=== PATIENT | female | born 1990 | race American Indian/Alaskan Native ===

== ENCOUNTER 2022-05-05 17:26 | Emergency (ER) | payer MEDICAID ==
--- NOTE | 2022-05-05 18:17 | XRay Report ---
XR chest routine 2V INDICATION / CLINICAL INFORMATION: SOB. COMPARISON: None available. FINDINGS: SUPPORT DEVICES: None. HEART /PULMONARY VASCULATURE: No significant abnormality. LUNGS / PLEURA: No significant pulmonary or pleural abnormality. No pneumothorax. ADDITIONAL FINDINGS: No significant additional findings. IMPRESSION: 1. No acute findings. Signer Name: Arvind Skelton MD Signed: 05/05/2022 6:12 PM Workstation Name: [id number]
[2022-05-05 18:44] LABS: Basophils # (Auto) 0.1 K/mm3 (0.0-0.1); Basophils % (Auto) 0.7 % (0.0-1.8); Eosinophils # (Auto) 0.5 K/mm3 (0.0-0.4); Eosinophils % (Auto) 6.5 % (0.0-4.3); Hematocrit 39.3 % (30.3-42.9); Hemoglobin 12.9 gm/dl (10.1-14.3); Lymphocytes # (Auto) 2.6 K/mm3 (1.2-5.4); Lymphocytes % (Auto) 34.2 % (13.4-35.0); Mean Corpuscular HGB Conc 33 % (30-34); Mean Corpuscular Volume 91 fl (79-97); Monocytes # (Auto) 0.5 K/mm3 (0.0-0.8); Monocytes % (Auto) 6.4 % (0.0-7.3); Platelet Count 253 K/mm3 (140-440); Red Cell Distribution Width 12.7 % (13.2-15.2)
[2022-05-05 19:18] LABS: Alanine Aminotransferase 59 units/L (7-56); Albumin 4.6 g/dL (3.9-5); BUN/Creatinine Ratio 13; Blood Urea Nitrogen 12 mg/dL (7-17); Calcium 9.3 mg/dL (8.4-10.2); Hemolysis Index 13
[2022-05-05] MEDS ORDERED: IPRATROPIUM/ALBUTEROL SULFATE 3 ML AMPUL.NEB IH ONE (20:54)
[2022-05-05] MEDS ORDERED: methylPREDNISolone Sod Succinate 125 MG/2 ML INJ IM ONE (20:54)
--- NOTE | 2022-05-05 22:07 | Emergency Department Report ---
- General Chief Complaint: Dyspnea/Respdistress Stated Complaint: SANDRA/COUGH Source: patient Mode of arrival: Ambulatory Limitations: No Limitations - History of Present Illness Initial Comments: Patient is a 31-year-old -[place] female with no past medical history presents to the ED with complaint of acute onset persistent nasal and sinus congestion, frontal sinus pressure, persistent dry cough with wheezing and chest tightness and shortness of breath for the last 2 days. Patient states that the symptoms got worse in the last 8 hours. Patient denies dizziness, syncope, fever, chills, nausea and vomiting, body aches and pains, abdominal pain, diarrhea, dysuria, urinary frequency and urgency, sore throat, change in vision or neck pain. MD Complaint: fever, cough, rhinorrhea, nasal congestion, sinus pain, other (Shortness of breath) -: days(s) (2) Severity: moderate Severity scale (0 -10): 6 Quality: dull, aching, other (Chest tightness) Consistency: constant Improves With: nothing Worsens With: nothing Associated Symptoms: denies other symptoms, rhinorrhea, nasal congestion, cough, shortness of breath. denies: fever, chills, myalgias, sore throat, stiff neck, chest pain, abdominal pain, nausea, vomiting, diarrhea, dysuria, rash, confusion, weight loss, epistaxis, hoarseness, ear pain, other Treatments Prior to Arrival: none - Related Data Previous Rx's Medication Instructions Recorded Last Taken Type Albuterol Sulfate [Proventil Hfa] 1 - 2 puff IH Q4H PRN #1 inh 05/05/22 Unknown Rx Azithromycin [Zithromax Z-JACE] 250 mg PO DAILY #6 tab 05/05/22 Unknown Rx Benzonatate [Tessalon Perles] 100 mg PO Q8HR #30 cap 05/05/22 Unknown Rx Cetirizine HCl [Zyrtec 10mg tab] 10 mg PO DAILY #30 tab 05/05/22 Unknown Rx Ibuprofen [Motrin] 600 mg PO Q8H PRN #30 tablet 05/05/22 Unknown Rx Allergies Allergy/AdvReac Type Severity Reaction Status Date / Time No Known Allergies Allergy Unverified 05/05/22 17:45 ED Review of Systems ROS: Stated complaint: SANDRA/COUGH Other details as noted in HPI Constitutional: denies: chills, fever Eyes: denies: eye pain, eye discharge, vision change ENT: congestion. denies: ear pain, throat pain Respiratory: cough, shortness of breath, wheezing Cardiovascular: denies: chest pain, palpitations Endocrine: no symptoms reported Gastrointestinal: denies: abdominal pain, nausea, vomiting, diarrhea Genitourinary: denies: urgency, dysuria, discharge Musculoskeletal: denies: back pain, joint swelling, arthralgia Skin: denies: rash, lesions Neurological: headache. denies: weakness, paresthesias Psychiatric: denies: anxiety, depression Hematological/Lymphatic: denies: easy bleeding, easy bruising ED Past Medical Hx - Medications Home Medications: Home Medications Medication Instructions Recorded Confirmed Last Taken Type Albuterol Sulfate [Proventil Hfa] 1 - 2 puff IH Q4H PRN #1 inh 05/05/22 Unknown Rx Azithromycin [Zithromax Z-JACE] 250 mg PO DAILY #6 tab 05/05/22 Unknown Rx Benzonatate [Tessalon Perles] 100 mg PO Q8HR #30 cap 05/05/22 Unknown Rx Cetirizine HCl [Zyrtec 10mg tab] 10 mg PO DAILY #30 tab 05/05/22 Unknown Rx Ibuprofen [Motrin] 600 mg PO Q8H PRN #30 tablet 05/05/22 Unknown Rx ED Physical Exam - General Limitations: No Limitations General appearance: alert, in no apparent distress - Head Head exam: Present: atraumatic, normocephalic, normal inspection - Eye Eye exam: Present: normal appearance, PERRL, EOMI Pupils: Present: normal accommodation - ENT ENT exam: Present: normal orophraynx, mucous membranes moist, TM's normal bilaterally, normal external ear exam, other (Grossly congested nasal passages; palpable frontal sinus tenderness) - Neck Neck exam: Present: normal inspection, full ROM. Absent: tenderness - Respiratory Respiratory exam: Present: wheezes (Mild diffuse coarse wheezes throughout). A bsent: normal lung sounds bilaterally, respiratory distress, rales, rhonchi, stridor, chest wall tenderness, accessory muscle use, decreased breath sounds, prolonged expiratory - Cardiovascular Cardiovascular Exam: Present: regular rate, normal rhythm, normal heart sounds. Absent: systolic murmur, diastolic murmur, rubs, gallop - GI/Abdominal GI/Abdominal exam: Present: soft, normal bowel sounds. Absent: tenderness, guarding, rebound, hyperactive bowel sounds, hypoactive bowel sounds, organomegaly, mass, bruit - Extremities Exam Extremities exam: Present: normal inspection, full ROM, normal capillary refill. Absent: tenderness, pedal edema, joint swelling, calf tenderness - Back Exam Back exam: Present: normal inspection, full ROM. Absent: tenderness, CVA tenderness (R), CVA tenderness (L), muscle spasm, paraspinal tenderness, v ertebral tenderness - Neurological Exam Neurological exam: Present: alert, oriented X3, CN II-XII intact, normal gait, reflexes normal - Psychiatric Psychiatric exam: Present: normal affect, normal mood - Skin Skin exam: Present: warm, dry, intact, normal color. Absent: rash ED Course Vital Signs 05/05/22 17:44 Temperature 98.0 F Pulse Rate 96 H Respiratory 18 Rate Blood Pressure 112/64 [Left] O2 Sat by Pulse 99 Oximetry ED Medical Decision Making - Lab Data Result diagrams: 05/05/22 18:30 05/05/22 18:30 - Radiology Data Radiology results: report reviewed, image reviewed [facility] [address] [place] [address] XRay Report Signed Patient: STEVE HOU MR#: [id number] : 1990 Acct:[id number] Age/Sex: 31 / F ADM Date: 05/05/22 Loc: ED Attending Dr: Ordering Physician: SHELODN SINGH MD Date of Service: 05/05/22 Procedure(s): XR chest routine 2V Accession Number(s): [id number] cc: ED MD FRANCISCO Fluoro Time In Minutes: XR chest routine 2V INDICATION / CLINICAL INFORMATION: SOB. COMPARISON: None available. FINDINGS: SUPPORT DEVICES: None. HEART /PULMONARY VASCULATURE: No significant abnormality. LUNGS / PLEURA: No significant pulmonary or pleural abnormality. No pneumothorax. ADDITIONAL FINDINGS: No significant additional findings. IMPRESSION: 1. No acute findings. Signer Name: Charla Zacarias MD Signed: 05/05/2022 6:12 PM Workstation Name: [id number] Transcribed By: JS Dictated By: CHARLA ZACARIAS MD Electronically Authenticated By: CHARLA ZACARIAS MD Signed Date/Time: 05/05/221811 DD/ 11 TD/TT: Print Cancel - Medical Decision Making This is a 31-year-old -[place] female with no past medical history presents to the ED with complaint of acute onset persistent nasal and sinus congestion, frontal sinus pressure, persistent dry cough with wheezing and chest tightness and shortness of breath for the last 2 days. Patient states that the symptoms got worse in the last 8 hours. In the ED, patient is alert and oriented x3 and is not in any distress. Patient was treated in the ED with DuoNeb and Solu-Medrol 125 mg intramuscular injection. Chest x-ray showed no ac mikie cardiopulmonary abnormalities or pneumonitis. On reevaluation, patient felt better, oxygen saturation ranged between 99 to 100% on room air. Patient was discharged home on medications and advised to follow-up with her primary care physician in 7 to 10 days for reevaluation or return to the ED immediately if symptoms get worse. Patient was also advised to get tested for COVID-19 viral infection at any of the outpatient facilities and if positive to self quarantine at home for 5 days. - Differential Diagnosis URI; sinusitis; bronchitis; asthma; pneumonia; COVID-19 Critical care attestation.: If time is entered above; I have spent that time in minutes in the direct care of this critically ill patient, excluding procedure time. ED Disposition Clinical Impression: Acute upper respiratory infection Acute bronchitis Qualifiers: Bronchitis organism: other organism Qualified Code(s): J20.8 - Acute bronchitis due to other specified organisms Acute frontal sinusitis Qualifiers: Recurrence: non-recurrent Qualified Code(s): J01.10 - Acute frontal sinusitis, unspecified Disposition: 01 HOME / SELF CARE / HOMELESS Is pt being admited?: No Does the pt Need Aspirin: No Condition: Stable Instructions: Acute Bronchitis (ED), Sinusitis, Adult, [id number], Upper Respiratory Infection, Adult, [id number], Cough, Adult, [id number], Acute Bronchitis, Adult, [id number] Additional Instructions: Chest x-ray showed no acute cardiopulmonary abnormalities or pneumonitis. All lab test results were reviewed and are all nonactionable. Therefore take medication as advised, drink plenty of fluids, follow-up with your primary care physician in 7 to 10 days for reevaluation. Ensure that you get tested for COVID-19 viral infection and a positive self quarantine at home for 5 days. Otherwise return to the ED immediately if symptoms get worse. Prescriptions: Ibuprofen [Motrin] 600 mg PO Q8H PRN #30 tablet PRN Reason: Pain Albuterol Sulfate [Proventil Hfa] 1 - 2 puff IH Q4H PRN #1 inh PRN Reason: Shortness Of Breath Benzonatate [Tessalon Perles] 100 mg PO Q8HR #30 cap Azithromycin [Zithromax Z-JACE] 250 mg PO DAILY #6 tab Cetirizine HCl [Zyrtec 10mg tab] 10 mg PO DAILY #30 tab Referrals: [facility] [Provider Group] - 7-10 days Forms: Work/School Release Form(ED) Time of Disposition: 22:08 Print Language: THAI
[2022-05-05 23:21] VITALS: BP 117/69
== END 2022-05-05 23:21 | disposition home or self-care (01) ==
LOC: ED 17:26
DX: J06.9 Acute upper respiratory infection, unspecified (principal); J20.8 Acute bronchitis due to other specified organisms; J01.10 Acute frontal sinusitis, unspecified
CPT/HCPCS: 36415; 71046; 80053; 84484; 85025; 94640; 96372; 99284; J2930